=== PATIENT | male | born 1970 | race African-American/Black ===

== ENCOUNTER 2022-03-21 00:11 | Day surgery (SDC) | payer OTHER, SELFPAY ==
[2022-02-14 13:55] VITALS: BMI 36.8
--- NOTE | 2022-03-02 12:38 | P.PNAN_ITS ---
Anes - Initial Pre Proc Eval Procedure: Operation Date: 03/03/22 09:30 Proposed Procedures p Screening Colonoscopy - Jayden Babcock MD Date/Time: 03/02/22 12:38 Surgeon: Jayden Babcock MD Pre Op Diagnosis: neoplasm screening Patient Data Age: 51 Gender: M Height: 1.75 m Weight: 113 kg Allergies Allergy/AdvReac Type Severity Reaction Status Date / Time No Known Allergies Allergy Verified 02/14/22 13:54 Home Medications Medication Instructions Recorded Confirmed Type tadalafil 5 mg tablet 5 mg PO DAILY 02/14/22 02/14/22 History tamsulosin 0.4 mg capsule 0.4 mg PO DAILY 02/14/22 02/14/22 History Results Review: All pre-operative results and documents have been reviewed as part of the pre- operative evaluation. [facility] Past Medical History Medical History (Updated 03/02/22 @ 12:38 by Tristin Kaba DO) BPH (benign prostatic hyperplasia) Psoriasis Social History Social History Alcohol intake: current Drinks per week: 14 Substance use: current Substance use type: marijuana Other substance usage details: daily Living arrangements: with family Spiritual care concerns: No Anes - Eval Final PreProcedure Day of Procedure 03/02/22 12:38 Patient weight: obese Heart: regular rate and rhythm Lungs: clear to auscultation Airway: Mallampati scale class II Neurological: alert and oriented Last oral intake: >/= 8 hours ASA classification: III Emergent: no Anesthetic plan: proceed Anesthesia type and monitoring: general GIVS and standard monitoring Results Review: All pre-operative results and documents have been reviewed as part of the pre- operative evaluation. Informed Consent: The patient's anesthetic plan and its attendant risks and benefits were discussed with the patient/family/POA. Questions were solicited and answers provided to the satisfaction of the patient/family/POA.
--- NOTE | 2022-03-16 10:29 | PC.NURSE ---
Spoke with pt re rescheduled colonoscopy. Pt verbalized understanding of updated date/times. Pt confirmed no changes to home medications or health history since previous PAT call completed.
[2022-03-21 11:20] VITALS: BP 126/75; PULSE 67; RESP 18; TEMP 36.8; O2SAT 100
[2022-03-21] MEDS: LACTATED RINGERS 1,000 ML 150 ML IV CONT (11:36)
--- NOTE | 2022-03-21 11:44 | P.PNAN_ITS ---
Anes - Initial Pre Proc Eval Procedure: Operation Date: 03/21/22 12:30 Proposed Procedures p Screening Colonoscopy - Jayden Babcock MD Date/Time: 03/21/22 11:44 Surgeon: Jayden Babcock MD Pre Op Diagnosis: neoplasm screening Patient Data Age: 51 Gender: M Height: 1.75 m Weight: 66.4 kg Last Vital Signs Temp 36.8 C 03/21/22 11:20 Pulse 67 03/21/22 11:20 Resp 18 03/21/22 11:20 BP 126/75 03/21/22 11:20 Pulse Ox 100 03/21/22 11:20 O2 Del Method Room Air 03/21/22 11:20 Allergies Allergy/AdvReac Type Severity Reaction Status Date / Time No Known Allergies Allergy Verified 03/21/22 11:19 Home Medications Medication Instructions Recorded Confirmed Type tadalafil 5 mg tablet 5 mg PO DAILY 02/14/22 03/16/22 History tamsulosin 0.4 mg capsule 0.4 mg PO DAILY 02/14/22 03/16/22 History Patient hx anesthesia problems: none Family hx anesthesia problems: none Results Review: All pre-operative results and documents have been reviewed as part of the pre- operative evaluation. [facility] Past Medical History Medical History (Updated 03/02/22 @ 12:38 by Tristin Kaba DO) BPH (benign prostatic hyperplasia) Psoriasis Social History Social History Alcohol intake: current Drinks per week: 14 Substance use: current Substance use type: marijuana Other substance usage details: daily Living arrangements: with family Spiritual care concerns: No Anes - Eval Final PreProcedure Day of Procedure 03/21/22 11:44 Patient weight: overweight Heart: regular rate and rhythm Lungs: clear to auscultation and normal air movement Airway: Mallampati scale class II Neurological: alert and oriented Last oral intake: >/= 8 hours ASA classification: II Emergent: no Anesthetic plan: proceed Anesthesia type and monitoring: general GIVS Results Review: All pre-operative results and documents have been reviewed as part of the pre- operative evaluation. Informed Consent: The patient's anesthetic plan and its attendant risks and benefits were discussed with the patient/family/POA. Questions were solicited and answers provided to the satisfaction of the patient/family/POA.
--- NOTE | 2022-03-21 11:57 | PM.HPGS ---
History of Present Illness History of Present Illness Consent: Risks, benefits, and alternatives have been discussed and questions answered. Patient agrees to proceed with procedure. Chief complaint: neoplasm screening Narrative: Phong Mcgrath is a 51 year old male here for first screening colonoscopy Review of Systems Constitutional: Constitutional: Denies headache(s) and Denies weakness Eyes: Eyes: Denies blurry vision ENT: Reports Normal hearing present, Denies headache(s) and Denies neck pain Cardiovascular: Cardiovascular: Denies chest pain and Denies dyspnea Respiratory: Respiratory: Denies dyspnea Gastrointestinal: Gastrointestinal: Reports no additional gastrointestinal complaints Genitourinary: Genitourinary: Denies dysuria Musculoskeletal: Musculoskeletal: Denies neck pain Integumentary/Breasts: Skin/Breast: Denies dry skin Neurologic: Reports Normal hearing present, Denies headache(s) and Denies weakness Psychiatric: Psychiatric: Denies anxiety Endocrine: Endocrine: Denies change in body appearance Hematologic/Lymphatic: Hematologic/Lymphatic: Denies easy bleeding Allergic/Immunologic: Allergic/Immunologic: Denies urticaria PMF Past Medical History Medical History (Updated 03/21/22 @ 11:58 by Jayden Babcock MD) BPH (benign prostatic hyperplasia) Colon cancer screening Psoriasis Social History Social History Alcohol intake: current Drinks per week: 14 Substance use: current Substance use type: marijuana Other substance usage details: daily Living arrangements: with family Spiritual care concerns: No Meds Home Medications and Allergies Home Medications Medication Instructions Recorded Confirmed Type tadalafil 5 mg tablet 5 mg PO DAILY 02/14/22 03/16/22 History tamsulosin 0.4 mg capsule 0.4 mg PO DAILY 02/14/22 03/16/22 History Allergies Allergy/AdvReac Type Severity Reaction Status Date / Time No Known Allergies Allergy Verified 03/21/22 11:19 Vital Signs Vital Signs - 24 hr 03/21/22 11:20 Temperature 98.2 F Pulse Rate 67 Respiratory Rate 18 Blood Pressure 126/75 Pulse Oximetry 100 Oxygen Delivery Room Air Exam Const: General: comfortable and no acute distress HENMT: General nose exam: Normal nares present Eyes: General: appearance normal, both eyes and all related structures Neck: Neck: no JVD Resp: Auscultation: clear to auscultation bilaterally Cardio: Rate: regular rate Rhythm: regular rhythm GI: Inspection: non-distended GI Palp: Yes Soft to palpation Skin: General skin exam: normal color Neuro: General: gait normal Speech: normal speech Extrem: General: normal to inspection Psych: Mental Status: mental status grossly normal Assessment and Plan Assessment and plan (1) Colon cancer screening: Code(s): Z12.11 - Encounter for screening for malignant neoplasm of colon Status: Acute Assessment and Plan: colonoscopy
[2022-03-21 12:35] VITALS: BP 121/76; PULSE 74; RESP 24; O2SAT 97
[2022-03-21 12:45] VITALS: BP 131/89; PULSE 69; RESP 18; O2SAT 100
[2022-03-21 12:55] VITALS: BP 147/93; PULSE 67; RESP 20; O2SAT 100
== END 2022-03-21 13:10 | disposition home or self-care (01) ==
PROVIDERS: Visit Provider Internal Medicine Gastroenterology
PROC: 0DJD8ZZ Inspection of Lower Intestinal Tract, Via Natural or Artificial Opening Endoscopic (ICD-10-PCS; CPT 45378; principal; 2022-03-21 12:30)
DX: Z12.11 Encounter for screening for malignant neoplasm of colon (principal); K57.30 Diverticulosis of large intestine without perforation or abscess without bleeding; D12.3 Benign neoplasm of transverse colon; K63.5 Polyp of colon; K64.8 Other hemorrhoids; N40.0 Benign prostatic hyperplasia without lower urinary tract symptoms; F12.90 Cannabis use, unspecified, uncomplicated
CPT/HCPCS: 45385; 88305; J2704; J7120